=== PATIENT | female | born 1995 | race Caucasian/White ===

== ENCOUNTER 2021-04-17 13:56 | Emergency (ER) | payer OTHER ==
--- OUTSIDE RECORDS SUMMARY | 2021-04-17 14:00 | XMS REPORT | Continuity of Care Document ---
:1995 Author Organization [facility] t Address [address] [place] [address] Care Team Providers Name Role Phone Eduard, Serafin Attending Clinician Unavailable Eduard, Serafin Admitting Clinician Unavailable Payers Payer Name Policy Type Policy Number Effective Date Expiration Date S ource Problems This patient has no known problems. Allergies, Adverse Reactions, Alerts Allergy Allergy Status Severity Reaction(s) Onset Inactive Treating Comm ents Source Name Type Date Date Clinician Sulfa DA Active [place] [facility] (Sulfona 6-30 [place] m[place] 00:00: d Antibiot 00 Medical ics) [place] Sulfa DA Active [place] [facility] (Sulfona 6-30 [facility]: [facility] Antibiot 00 l of ics) [place] Medications This patient has no known medications. Procedures Procedure Date / Time Performed Performing Clinician Sour e [id number] 2021-04-05 00:00:00 JACQUIE [facility] [id number] 2021-04-05 00:00:00 JACQUIE [facility] Encounters Start End Encounter Admission Attending Care Care Encounter Source Date/Time Date/Time Type Type Clinicians Facility Department ID 2021-04-15 [id number] 14:39:00 Cristina [id number] [facility] 2021-04-04 2021-04-07 Inpatient EM Eduard, [facility] [id number] [facility] 22:32:00 14:02:00 Cristina [id number] [facility] 2021-04-04 2021-04-04 Inpatient EM Eduard, [facility] OBPP [id number] [facility] 22:32:00 22:32:00 Cristina 47 [facility] 2021-04-02 2021-04-02 Emergency EM Eduard, [facility] MOLLY [id number] [facility] 01:56:00 03:07:00 Cristina [id number] [facility] Results Test Description Test Time Test Comments Results Result Comments Source HGB HCT 2021-04-06 06:58:00 Test Item Value Reference Range Interpretation Comme nts HEMOGLOBIN (test code = HGB) 8.5 g/dL 10.1-13.8 L HEMATOCRIT (test code = HCT) 27.2 % 32.5-41.8 L AG HEPATITIS B [id number] 01:21:00 Test Item Value Reference Range Interpretation Comments AG HEPATITIS B SURFACE (test code NONREACTIVE NONREACTIVE = HBSAG) AB HEPATITIS C [id number] 01:21:00 Test Item Value Reference Range Interpretation Comments AB HEPATITIS C (test code = NONREACTIVE NONREACTIVE HCVAB) SIGNAL TO CUTOFF (test code = <0.02 <0.80 N CUTOFF) AB [id number] 01:21:00 Test Item Value Reference Range Interpretation Comments AB TREPONEMA (test code = TREPAB) NONREACTIVE NONREACTIVE AB HIV 1 01:21:00 Test Item Value Reference Range Interpretation Comments AB HIV 1 2 (test NONREACTIVE NONREACTIVE [id number] 4th Gen HIV Ag/Ab Combo Screen CBC W/AUTO [id number] 23:15:00 Test Item Value Reference Range Interpretation Comments WHITE BLOOD CELL (test code = WBC) 17.0 K/mm3 6.5-12.3 H RED BLOOD CELL (test code = RBC) 3.83 M/mm3 3.51-4.69 N HEMOGLOBIN (test code = HGB) 9.7 g/dL 10.1-13.8 L HEMATOCRIT (test code = HCT) 30.8 % 32.5-41.8 L MEAN CELL VOLUME (test code = MCV) 80.4 fL 84.6-96.6 L MEAN CELL HGB (test code = MCH) 25.3 pg 27.3-33.9 L MEAN CELL HGB CONCETRATION (test 31.5 gm/dL 32.0-34.2 L code = MCHC) RED CELL DISTRIBUTION WIDTH (test 14.4 % 12.2-16.3 N code = RDW) PLATELET COUNT (test code = PLT) 361 K/mm3 134-363 N MEAN PLATELET VOLUME (test code = 10.2 fL 9.2-12.7 N MPV) NEUTROPHIL % (test code = NT%) 71.2 % 57.9-77.3 N LYMPHOCYTE % (test code = LY%) 19.9 % 14.5-29.7 N MONOCYTE % (test code = MO%) 6.7 % 3.6-10.2 N EOSINOPHIL % (test code = EO%) 1.2 % 0.0-3.0 N BASOPHIL % (test code = BA%) 0.4 % 0.1-0.9 N NEUTROPHIL # (test code = NT#) 12.1 K/mm3 LYMPHOCYTE # (test code = LY#) 3.4 K/mm3 MONOCYTE # (test code = MO#) 1.1 K/mm3 EOSINOPHIL # (test code = EO#) 0.21 K/mm3 BASOPHIL # (test code = BA#) 0.1 K/mm3 RBC MORPHOLOGY REQUIRED (test code NORMAL NORMAL = RBCM) PLATELET MORPHOLOGY REQUIRED (test NORMAL NORMAL code = PLTMR) COVID 19 Asymptomatic IH [id number] 22:44:00 Test Item Value Reference Range Interpretation Comments COVID 19 NEGATIVE NEGATIVE This test has b een Asymptomatic IH AG authorize d only for the (test code = detection ofpro teins from COVNONPUIAG) SARS-CoV-2, not for any other viruses orpathogens. N egative results should be treated as presumptive andconfirmed wi th a molecular assay , if necessary for patientmanageme nt. Negative result s do not rule out COVID- 19 andshould not b e used as the sole basis for treatment orpat ient management deci sions, including infec tion controldecision s. Negative result s should be considered i n thecontext of a patient's recent exposure s, history and thepresence of clinical signs and symptoms consis tent withCOVID-19. T his test has not been FD A cleared or approved; th e test hasbeen authori susei by FDA under an Emerge ncy Use Authorization(E UA) for use by laborato bhupinder certified under the CLIA thatmeet the re quirements to perform mode rate, high or waivedcomple xity tests. This henna t is authorized for use at thePoint of Car e (POC), i.e., in patien t care settingsoperati ng under a CLIA Certificat e of Waiver, Certifi bradley ofCompliance, o r Certificate of Accreditation. This test is only authori zed for the duration of thedeclaration that circumstances e xist justifying theauthorizatio n of emergency use o f in vitro diagnostic test sfor detection and/o r diagnosis of CO VID-19 under Fdtbfuv26 4(b)(1) of the Act, 21 U.S .C. 360bbb-3(b)(1), unless theauthorizatio n is terminated or r evoked sooner. RUPTURE OF [id number] 21:32:00 Test Item Value Reference Range Interpretation Comments RUPTURE OF MEMBRANES (test code = RUPTURED ROM) RUPTURE OF [id number] 02:37:00 Test Item Value Reference Range Interpretation Comments RUPTURE OF MEMBRANES (test code NON-RUPTURED = ROM) - HEPA IMAG INCL [id number] 17:38:00 FAX: Joshua Zambrano MD [phone] Camps: PM St: REG Name: SILVIANO RAUSCH [facility] : 1995 Age/S: 22/F [id number] Unit #: [id number] Loc: [place] [address] Phys: Joshua Solis MD Acct: [id number] Dis Date: Status: REG CLI PHONE #: [phone] Exam Date: 11/01/2018 1729 FAX #: Reason: EPIGASTRIC ABD PAIN EXAMS: CPT: [id number] [id number] Dictation location: B2. NUCLEAR MEDICINE HIDA SCAN HISTORY: EPIGASTRIC ABD PAIN COMPARISON: None. TECHNIQUE: The patient received an intravenous injection of 5 mCi technetium 99m Choletec. Dynamic images were obtained. FINDINGS: There is prompt uptake of radiotracer throughout the liver. Uniform uptake throughout the liver with biliary excretion seen within 10 minutes along with small bowel activity. This initially a cystic duct sign with eventual filling of the gallbladder at approximately 30 minutes. There is good excretion of the radiotracer from the liver. IMPRESSION: No evidence of acute cholecystitis or biliary obstruction. at 6943 Reported and signed by: Rosalino Rolle M.D. CC: Joshua Solis MD Technologist: SCARLET Arzola Transcribed Date/Time/By: 11/01/2018 (5178) :[id number] Print D/T: S: 11/01/2018 ([id number]) PAGE 1 Signed Report
--- NOTE | 2021-04-17 16:42 | RAD REPORT ---
EXAM DESCRIPTION: MRI - Brain W/Wo Cont - 04/17/2021 4:33 pm CLINICAL HISTORY: PAIN COMPARISON: No comparisons TECHNIQUE: Sagittal T1-weighted images were obtained along with PD/heavily T2-weighted and T2-FLAIR images. Axial DWI and ADC mapping sequences were also obtained along with coronal heavily T2-weighted images were obtained. Contrast was administered. FINDINGS: No intracranial hemorrhage, mass or acute infarction. There is no edema or shift of midlin e structures. No extra-axial fluid collections. Signal voids are seen as a normal finding in the andrew r intracranial vessels. No significant white matter disease. No abnormal enhancement. 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 If present, this is surely small in size has as it is not dusty dily apparent on this exam. Mastoid air cells and paranasal sinuses are clear. IMPRESSION: No acute intracranial abnormality. No abnormal enhancement or significant white matter disease. Reportedly, the patient has a pineal cyst. No discrete pineal lesion is identified. If a pin eal cyst is present, it is of doubtful clinical significance
[2021-04-17] MEDS ORDERED: METOCLOPRAMIDE 10 MG/2mL INJ ONE (17:20)
[2021-04-17] MEDS ORDERED: NA CHLORIDE 0.9% 1,000 ML ONE (17:20)
[2021-04-17] MEDS ORDERED: DIPHENHYDRAMINE 50 MG/ML VIAL ONE (17:20)
[2021-04-17] MEDS ORDERED: KETOROLAC 30 MG/ML INJ ONE (17:20)
--- NOTE | 2021-04-17 18:08 | EDPHYS ---
Physician Documentation [facility] Name: Srini Van Age: 25 yrs Sex: Female : 1995 Arrival Date: 04/17/2021 Time: 13:57 Bed DIS1 Private MD: ED Physician Michael Mcduffie HPI: 04/17 19:02 This 25 yrs old Female presents to ER via Ambulatory with complaints of Headache, kb Blurred Vision, Nausea. 19:02 The patient complains of pain to the top of head and forehead. The patient describes kb the headache as a pressure. Onset: The symptoms/episode began/occurred 3 week(s) ago. Associated signs and symptoms: Pertinent positives: nausea, "gets a halo in her vision every once in a while that goes away after about 30 minutes". Severity of symptoms: At its worst the pain was moderate, in the emergency department the pain is unchanged. Headache History: The patient has had previous headaches and this one is similar to previous episodes, and this one is more severe than previous episodes. The symptoms are alleviated by nothing. the symptoms are aggravated by nothing. The patient has experienced similar episodes in the past. The patient has not recently seen a physician. Pt states she has had a migraine for 3 weeks that is similar to previous but worse. States she has a cyst and is concerned that it has gotten bigger. 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 - Social history:: Smoking status: Patient denies any tobacco usage or history of. ROS: 19:01 Constitutional: Negative for fever, chills, and weight loss. kb 19:01 Abdomen/GI: Positive for nausea, Negative for abdominal pain, vomiting, diarrhea. 19:01 Neuro: Positive for headache. 19:01 All other systems are negative. Exam: 19:01 Constitutional: This is a well developed, well nourished patient who is awake, alert, kb and in no acute distress. Head/Face: Normocephalic, atraumatic. Eyes: Pupils equal round and reactive to light, extra-ocular motions intact. Lids and lashes normal. Conjunctiva and sclera are non-icteric and not injected. Cornea within normal limits. Periorbital areas with no swelling, redness, or edema. ENT: Moist Mucous membranes Cardiovascular: Regular rate and rhythm with a normal S1 and S2. No gallops, murmurs, or rubs. No pulse deficits. Respiratory: Respirations even and unlabored. No increased work of breathing. Talking in full sentences Skin: Warm, dry with normal turgor. Normal color. MS/ Extremity: Pulses equal, no cyanosis. Neurovascular intact. Full, normal range of motion. Neuro: Awake and alert, GCS 15, oriented to person, place, time, and situation. Moves all extremities. Normal gait. Psych: Awake, alert, with orientation to person, place and time. Behavior, mood, and affect are within normal limits. Vital Signs: 14:52 BP 119 / 84; Pulse 90; Resp 17; Temp 97.6; Pulse Ox 99% ; Height 5 ft. 7 in. (170.18 jl7 cm); Pain 9/10; [place] Coma Score: 19:02 Eye Response: spontaneous(4). Verbal Response: oriented(5). Motor Response: obeys kb commands(6). Total: 15. MDM: 16:44 Patient medically screened. kb 19:02 Data reviewed: vital signs, nurses notes. Data interpreted: Pulse oximetry: on room air kb is 99 %. Interpretation: normal. Counseling: I had a detailed discussion with the patient and/or guardian regarding: the historical points, exam findings, and any diagnostic results supporting the discharge/admit diagnosis, radiology results, the need for outpatient follow up, a family practitioner, to return to the emergency department if symptoms worsen or persist or if there are any questions or concerns that arise at home. 04/17 16:21 Order name: Brain W/Wo Cont; Complete Time: 16:44 EDMS 04/17 16:55 Order name: IV Start; Complete Time: 17:18 kb Administered Medications: 17:20 Drug: Benadryl (diphenhydrAMINE) 12.5 mg Route: IVP; Site: right antecubital; ss 18:50 Follow up: Response: No adverse reaction ss 17:30 Drug: Ketorolac 15 mg Route: IVP; Site: right antecubital; ss 18:50 Follow up: Response: No adverse reaction ss 17:34 Drug: NS 0.9% 1000 ml Route: IV; Rate: 1000 ml; Site: right antecubital; ss 18:50 Follow up: IV Status: Completed infusion; IV Intake: 1000ml ss 17:34 Drug: Reglan (metoCLOPramide) 10 mg Route: IVP; Site: right antecubital; ss 18:50 Follow up: Response: No adverse reaction ss Disposition Summary: 04/17/21 18:07 Discharge Ordered Location: Home kb Condition: Stable kb Diagnosis - Migraine without aura, not intractable kb Followup: kb - With: Emergency Department - When: As needed - Reason: Worsening of condition Followup: kb - With: Private Physician - When: 2 - 3 days - Reason: Recheck today's complaints, Continuance of care, Re-evaluation by your physician Discharge Instructions: - Migraine Headache, [id number] kb - Discharge Summary Sheet ss Forms: - Medication Reconciliation Form kb - Thank You Letter kb - Antibiotic Education kb - Prescription Opioid Use kb Addendum: 04/23/2021 21:09 Co-signature as Attending Physician, Michael Mcduffie MD. r n Signatures: Dispatcher [employer] EDMS Yuki Sal, FORM BLOCK MAKER-C FORM BLOCK MAKER-Ckb Michael Mcduffie MD MD rn Smirch, Shelby, RN RN ss Leal, Jahala, RN RN jl7 Corrections: (The following items were deleted from the chart) 04/17 14:56 14:54 Allergies: No Known Allergies; jl7 jl7 14:56 14:54 PSHx: None; jl7 jl7 16:21 14:59 Brain With Cont+MRI.RAD.BRZ ordered. EDMS EDMS
--- NOTE | 2021-04-17 18:08 | ER ---
Nurse's Notes [facility] Name: Srini Van Age: 25 yrs Sex: Female : 1995 Arrival Date: 04/17/2021 Time: 13:57 Bed DIS1 Private MD: Diagnosis: Migraine without aura, not intractable Presentation: 04/17 14:52 Chief complaint: Patient states: Headaches, pressure, nausea, blurred x 3 weeks and jl7 it's just getting worse. I have a cyst o my brain and it just worries me that maybe it's getting too big. Coronavirus screen: At this time, the client does not indicate any symptoms associated with coronavirus-19. Ebola Screen: No symptoms or risks identified at this time. Initial Sepsis Screen: Does the patient meet any 2 criteria? No. Patient's initial sepsis screen is negative. Does the patient have a suspected source of infection? No. Patient's initial sepsis screen is negative. Risk Assessment: Do you want to hurt yourself or someone else? Patient reports no desire to harm self or others. Onset of symptoms was April 03, 2021. 14:52 Method Of Arrival: Ambulatory [facility] 14:52 Acuity: PHILLIP 3 [facility] Triage Assessment: 14:54 Headache History: The patient has had previous headaches and this one is similar to 7 previous episodes. General: Appears in no apparent distress. uncomfortable, Behavior is calm, cooperative, appropriate for age. Pain: Complains of pain in headache Pain currently is 9 out of 10 on a pain scale. Pain began x3 weeks Also complains of nausea. Neuro: Level of Consciousness is awake, alert, obeys commands, Oriented to person, place, time, situation. Cardiovascular: Patient's skin is warm and dry. Respiratory: Airway is patent Respiratory effort is even, unlabored, Respiratory pattern is regular, symmetrical. Derm: Skin is pink, warm \\T\\ dry. 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 - Social history:: Smoking status: Patient denies any tobacco usage or history of. Screenin:45 Abuse screen: Denies threats or abuse. Denies injuries from another. ss Assessment: 17:45 General: Appears in no apparent distress. comfortable, Behavior is calm, cooperative. ss Neuro: Level of Consciousness is awake, alert, obeys commands, Oriented to person, place, time, situation. Neuro: Reports headache. Cardiovascular: Capillary refill < 3 seconds is brisk in bilateral fingers. Respiratory: Airway is patent Respiratory effort is even, unlabored, Respiratory pattern is regular, symmetrical. GI: No signs and/or symptoms were reported involving the gastrointestinal system. Derm: Skin is intact, is healthy with good turgor, Skin is pink, warm \\T\\ dry. normal. Musculoskeletal: Circulation, motion, and sensation intact. Range of motion: intact in all extremities, Swelling absent. 17:47 Reassessment: PT states, " I'm surprised that the CT scan didn't show a cyst. I always ss thought my headaches were because of this.". Vital Signs: 14:52 BP 119 / 84; Pulse 90; Resp 17; Temp 97.6; Pulse Ox 99% ; Height 5 ft. 7 in. (170.18 jl7 cm); Pain 9/10; Ilana Coma Score: 19:02 Eye Response: spontaneous(4). Verbal Response: oriented(5). Motor Response: obeys kb commands(6). Total: 15. ED Course: 13:57 Patient arrived in ED. as 14:53 Triage completed. jl7 14:54 Arm band placed on right wrist. Patient placed in waiting room, Patient notified of jl7 wait time. 16:22 Brain W/Wo Cont In Process Unspecified. EDMS 16:44 Renetta Boateng, SHENG is Primary Nurse. ss 16:44 Yuki Sal FNP-C is PHCP. kb 16:44 Michael Mcduffie MD is Attending Physician. kb 17:45 No provider procedures requiring assistance completed. ss 18:50 IV discontinued, intact, bleeding controlled, No redness/swelling at site. Pressure ss dressing applied. Administered Medications: 17:20 Drug: Benadryl (diphenhydrAMINE) 12.5 mg Route: IVP; Site: right antecubital; ss 18:50 Follow up: Response: No adverse reaction ss 17:30 Drug: Ketorolac 15 mg Route: IVP; Site: right antecubital; ss 18:50 Follow up: Response: No adverse reaction ss 17:34 Drug: NS 0.9% 1000 ml Route: IV; Rate: 1000 ml; Site: right antecubital; ss 18:50 Follow up: IV Status: Completed infusion; IV Intake: 1000ml ss 17:34 Drug: Reglan (metoCLOPramide) 10 mg Route: IVP; Site: right antecubital; ss 18:50 Follow up: Response: No adverse reaction ss Intake: 18:50 IV: 1000ml; Total: 1000ml. ss Outcome: 18:07 Discharge ordered by . kb 18:50 Discharged to home ambulatory. ss 18:50 Condition: good 18:50 Discharge instructions given to patient, Instructed on discharge instructions, follow up and referral plans. Demonstrated understanding of instructions, follow-up care. 18:50 Patient left the ED. ss Signatures: Dispatcher [employer] EDMS Yuki Sal, ASSOCIATE PROFESSOR OF ARCHAEOLOGY-C ASSOCIATE PROFESSOR OF ARCHAEOLOGY-Margaret Armando Shelby, RN RN Olman Mosley RN RN jl7 Corrections: (The following items were deleted from the chart) 14:56 14:54 Allergies: No Known Allergies; jl7 jl7 14:56 14:54 PSHx: None; jl7 jl7
[2021-04-17 19:19] VITALS: BP 119/84; TEMP 97.6; O2SAT 99
== END 2021-04-17 18:50 | disposition home or self-care (01) ==
LOC: ER 13:56
DX: G43.009 Migraine without aura, not intractable, without status migrainosus (principal); Z88.2 Allergy status to sulfonamides
CPT/HCPCS: 96361; 70553; 96375; 96374; 99283; A9577; J2765; J1200; J7030